=== PATIENT | male | born 1945 | race Caucasian/White ===

== ENCOUNTER 2021-02-06 10:49 | Outpatient (CLI) | payer MEDICARE | END 2021-02-06 23:59 | disposition home or self-care (01) | LOC: US 10:49 | PROVIDERS: ATTEND Internal Medicine | DX: N28.1 Cyst of kidney, acquired (principal); I12.9 Hypertensive chronic kidney disease with stage 1 through stage 4 chronic kidney disease, or unspecified chronic kidney disease; E11.22 Type 2 diabetes mellitus with diabetic chronic kidney disease; N18.9 Chronic kidney disease, unspecified | CPT/HCPCS: 76770-TC ==

== ENCOUNTER → 2021-02-26 | Outpatient (CLI) | payer MEDICARE | END | disposition home or self-care (01) | LOC: MSC 09:26 | PROVIDERS: ATTEND Internal Medicine | DX: E11.22 Type 2 diabetes mellitus with diabetic chronic kidney disease (principal); E11.65 Type 2 diabetes mellitus with hyperglycemia; I12.9 Hypertensive chronic kidney disease with stage 1 through stage 4 chronic kidney disease, or unspecified chronic kidney disease; N18.4 Chronic kidney disease, stage 4 (severe); Z79.4 Long term (current) use of insulin; E11.21 Type 2 diabetes mellitus with diabetic nephropathy; E11.319 Type 2 diabetes mellitus with unspecified diabetic retinopathy without macular edema; R35.0 Frequency of micturition; E66.9 Obesity, unspecified; Z68.42 Body mass index [BMI] 45.0-49.9, adult; Z71.3 Dietary counseling and surveillance; E78.5 Hyperlipidemia, unspecified; Z79.899 Other long term (current) drug therapy ==

== ENCOUNTER 2021-04-04 11:13 | Outpatient (CLI) | payer MEDICARE ==
[2021-04-04] MEDS ORDERED: LORA-259 PO (12:37)
[2021-04-04] MEDS ORDERED: ICOS1CAP PO (12:37)
[2021-04-04] MEDS ORDERED: ESZO3TAB39 PO (12:37)
[2021-04-04] MEDS ORDERED: TOLT4CAP14 PO (12:37)
[2021-04-04] MEDS ORDERED: ALFU10TA10 PO (12:37)
[2021-04-04] MEDS ORDERED: EDARBYCLOR PO (12:39)
[2021-04-04] MEDS ORDERED: REGULAR INSULIN (13:40)
[2021-04-04] MEDS ORDERED: INSU100V7 SQ (13:40)
[2021-04-05] MEDS ORDERED: MECL-225 PO (16:12)
== END 2021-04-04 23:59 | disposition home or self-care (01) ==
LOC: MSC 11:13
PROVIDERS: ATTEND Internal Medicine
DX: R42 Dizziness and giddiness (principal); E11.22 Type 2 diabetes mellitus with diabetic chronic kidney disease; E11.65 Type 2 diabetes mellitus with hyperglycemia; I12.9 Hypertensive chronic kidney disease with stage 1 through stage 4 chronic kidney disease, or unspecified chronic kidney disease; N18.4 Chronic kidney disease, stage 4 (severe); Z79.4 Long term (current) use of insulin; E66.9 Obesity, unspecified; E78.5 Hyperlipidemia, unspecified

== ENCOUNTER 2021-04-04 11:55 | Inpatient (IN) | payer MEDICARE ==
[~2021-04-04] VITALS: Ht 195.6 cm; Wt 111.1 kg
[2021-04-04] MEDS ORDERED: MECLIZINE HCL 12.5 MG TABLET PO ONE (12:30)
[2021-04-04] MEDS ORDERED: IV NS 0.9% 500 ML BAG IV ONE (12:30)
[2021-04-04] MEDS ORDERED: MECLIZINE HCL 25 MG TABLET ONE (12:30)
--- NOTE | 2021-04-04 12:30 | NUR ---
THE PATIENT BIBA FROM PMD OFFICE FOR DIZZINESS. ALERT AND ORIENTED X4. DENIES PAIN. IN ROOM AIR AND DENIES SOB. RESPIRATION REGULAR AND UNLABORED. ATTACHED TO THE MONITOR. WILL CONTINUE TO MONITOR THE PATIENT.
[2021-04-04 12:36] LABS: BASOPHILS % (AUTO) 0.6 % (0.0-2.0); EOSINOPHILS % (AUTO) 0.9 % (0.0-6.0); HEMATOCRIT 41 % (39-51); HEMOGLOBIN 13.4 g/dL (13.5-17.5); LYMPHOCYTES # (AUTO) 2.2 K/uL (0.8-4.8); LYMPHOCYTES % (AUTO) 34.9 % (20.0-44.0); MEAN CORPUSCULAR HGB CONC 33 g/dl (31.0-36.0); MEAN CORPUSCULAR VOLUME 90 fL (80-96); MONOCYTES # (AUTO) 0.5 K/uL (0.1-1.30); MONOCYTES % (AUTO) 8.3 % (2.0-12.0); NEUTROPHILS # (AUTO) 3.4 K/uL (1.8-8.9); NEUTROPHILS % (AUTO) 55.3 % (43.0-81.0); PLATELET COUNT (AUTO) 227 K/uL (150-450); RED BLOOD CELL COUNT(AUTO) 4.48 MIL/uL (4.5-6.0); WHITE BLOOD COUNT (AUTO) 6.2 K/uL (4.3-11.0)
[2021-04-04] MEDS ORDERED: ESZO3TAB39 PO (12:37)
[2021-04-04] MEDS ORDERED: LORA-259 PO (12:37)
[2021-04-04] MEDS ORDERED: ICOS1CAP PO (12:37)
[2021-04-04] MEDS ORDERED: ALFU10TA10 PO (12:37)
[2021-04-04] MEDS ORDERED: TOLT4CAP14 PO (12:37)
[2021-04-04] MEDS ORDERED: EDARBYCLOR PO (12:39)
[2021-04-04 13:16] LABS: ALANINE AMINOTRANSFERASE 23 U/L (12-78); ALBUMIN 3.2 g/dL (3.4-5.0); ALKALINE PHOSPHATASE 74 U/L (46-116); ASPARTATE AMINOTRANSFERASE 16 U/L (15-37); BILIRUBIN,DIRECT 0.1 mg/dL (0.0-0.2); BILIRUBIN,TOTAL 0.5 mg/dL (0.2-1.0); CALCIUM, SERUM 8.3 mg/dL (8.5-10.1); CARBON DIOXIDE 24 mmol/L (21-32); CHLORIDE 100 mmol/L (98-107); CREATININE 2.1 mg/dL (0.6-1.3); POTASSIUM 4.9 mmol/L (3.5-5.1); SODIUM SERUM 134 mmol/L (136-145); UREA NITROGEN, BLOOD 41 mg/dL (7-18)
[2021-04-04 13:20] LABS: GLUCOSE 426 mg/dL (74-106)
[2021-04-04] MEDS ORDERED: INSULIN REGULAR, HUMAN 100 UNIT/ML 10 ML VIAL SQ ONE (13:30)
[2021-04-04] MEDS ORDERED: INSU100V7 SQ (13:40)
[2021-04-04] MEDS ORDERED: REGULAR INSULIN (13:40)
--- NOTE | 2021-04-04 13:43 | NUR ---
[facility] CALLED [employer].
--- NOTE | 2021-04-04 13:43 | NUR ---
[facility] 409. DR MAGAÑA AWARE. INSULIN COVERAGE GIVEN PER ORDER.
--- NOTE | 2021-04-04 13:44 | NUR ---
MOVE SHEET SUBMITTED AND CALLED FOR BED.
--- NOTE | 2021-04-04 14:09 | NUR ---
COVID SWAB DONE AND SENT TO THE LAB
--- NOTE | 2021-04-04 14:53 | NUR ---
Room 309-1
[2021-04-04] MEDS ORDERED: IV NS 0.9% 1,000 ML IV PRN (15:00)
[2021-04-04] MEDS ORDERED: ACETAMINOPHEN 325 MG TABLET PO ONE (15:00)
[2021-04-04] MEDS ORDERED: ACETAMINOPHEN 325 MG TABLET ONE (15:01)
--- NOTE | 2021-04-04 15:28 | NUR ---
REPORT GIVEN TO NURSE ELENA
[2021-04-04 15:48] LABS: THYROID STIMULATING HORMONE 3.563 uIU/mL (0.358-3.74)
--- NOTE | 2021-04-04 15:59 | NUR ---
The patient in stable condition and is transfered to assigned room per policy.
--- NOTE | 2021-04-04 16:15 | NUR ---
EXECUTIVE CHEF ASSISTANTVOCATIONAL SERVICES SPECIALIST NOTES ADMITTED PATIENT IN ROOM 309-2. ALERT AND ORIENTED X4. RECEIVED REPORT FROM ROMAINE, ER NURSE. NO SIGNS OR SYMPTOMS OF DISTRESS NOTED. NO COMPLAINTS OF PAIN AT THIS TIME. BREATHING IS EVEN AND UNLABORED. IV ACCESS IN R HAND #20G IS PATENT AND INTACT. PATIENT ORIENTED TO UNIT AND STAFF. SAFETY MEASURES IN PLACE WITH BED LOCKED IN LOWEST POSITION, SIDE RAILS UP X 2. VALENTINO BERTRAND DRAG CAR RACER WITH PATIENT AT BEDSIDE. CALL LIGHT IS WITHIN REACH. WILL AWAIT ORDERS AND PLAN ON CARE. WILL CONTINUE TO MONITOR THROUGHOUT SHIFT.
[2021-04-04] MEDS ORDERED: ESZOPICLONE 3 MG PO PRN (16:30)
[2021-04-04] MEDS ORDERED: LORAZEPAM 1 MG TABLET PO PRN (16:30)
[2021-04-04] MEDS ORDERED: ONDANSETRON HCL/PF 4 MG/2 ML VIAL IVP PRN (16:30)
[2021-04-04] MEDS ORDERED: *INSULIN REGULAR(HUMULIN R)HUM 100 UNIT/ML VIAL SQ PRN (17:00)
[2021-04-04] MEDS ORDERED: Medication Not On Formulary EA (Icosapent Ethyl (Vascepa) 2 CAP) PO SCH (17:00)
[2021-04-04] MEDS ORDERED: DEXTROSE 50%-WATER 50 ML DISP.SYRIN IV PRN (17:00)
[2021-04-04] MEDS ORDERED: ZOLPIDEM TARTRATE 5 MG TABLET PO PRN (17:30)
[2021-04-04] MEDS ORDERED: MECLIZINE HCL 12.5 MG TABLET PO PRN (17:30)
[2021-04-04] MEDS: BLOOD SUGAR DIAGNOSTIC 1 EACH STRIP VI SCH (18:19)
[2021-04-04] MEDS: INSULIN REGULAR, HUMAN 100 UNIT/ML 3 ML VIAL SQ PRN (18:25)
--- NOTE | 2021-04-04 18:52 | NUR ---
[employer] ARCHITECT NOTES PATIENT BS TAKEN 2 TIMES WITH 1ST RESULT AT 405 AND SECOND BS AT 429. VALENTINO BERTRAND NP MADE AWARE WITH ORDER TO GIVE 10UNITS PER SLIDING SCALE PLUS AN ADDITIONAL 5 UNITS. ORDER CARRIED OUT.
--- NOTE | 2021-04-04 18:53 | NUR ---
EXHIBIT CARPENTER CLOSING NOTES PATIENT IS IN BED AWAKE. ALERT AND ORIENTED X 4. NO SIGNS OR SYMPTOMS OF DISTRESS NOTED. NO COMPLAINTS OF PAIN AT THIS TIME. PATIENT IS TOLERATING ROOM AIR, BREATHING EVEN AND UNLABORED. IV ACCES R HAND #20 IS RUNNING WITH 0.9% NS AT 100MLS/HR. SAFETY MEASURES IN PLACE WITH BED AT LOWEST POSITION LOCKED WITH SIDE RAILS UP X 2. WILL ENDORSE CONTINUITY OF CARE TO NEXT NURSE.
[2021-04-04 20:00] VITALS: BP 155/92
--- NOTE | 2021-04-04 20:00 | NUR ---
MS RN OPENING NOTES Patient is A&Ox4. Denies any pain or discomfort. Not in any distress. Reminded pt. to ask for help when getting up d/t c/o dizziness. R hand #22G intact, patent, saline flushed. Will monitor.
[2021-04-04] MEDS: HEPARIN SODIUM, PORCINE 5000 UNITS/1 ML VIAL SQ SCH (21:53)
[2021-04-04] MEDS ORDERED: INSULIN GLARGINE, 100 UNIT/ML CARTRIDGE SQ SCH (22:00)
--- NOTE | 2021-04-05 | NUR ---
Patient refused midnight vital signs x3. "Saying let me sleep, I am fine."
[2021-04-05] MEDS: BLOOD SUGAR DIAGNOSTIC 1 EACH STRIP VI SCH ×3 (00:40→12:06)
--- NOTE | 2021-04-05 03:02 | NUR ---
Patient checked on at 0245, reports feeling dizzy and shaky. BS checked result 63. OJ x2 given and apple sauce with sugar packet. Will recheck in 30 minutes.
[2021-04-05 04:00] VITALS: BP 137/69
--- NOTE | 2021-04-05 04:00 | NUR ---
At 0358 BS rechecked and it is 239 patient reports feeling much better. MD notified. Awaiting response. Will check again at 0630 before breakfast per [facility] order.
[2021-04-05] MEDS: ACETAMINOPHEN 325 MG TABLET PO PRN ×2 (05:42→16:44)
--- NOTE | 2021-04-05 05:42 | NUR ---
Patient c/o 12/19 headache. PRN tylenol administered as per MD order.
--- NOTE | 2021-04-05 05:56 | NUR ---
Assisted patient to restroom at 0550, patient refused to be hooked back up to NS fluids, saying "being attached to this is like snf" and "i have to get up to pee every hour." Explained risks and benefits.
[2021-04-05 06:00] VITALS: BP_SYST 145; BP_SYST 153; BP_SYST 164; BP_DIAS 77; BP_DIAS 86; BP_DIAS 87
--- NOTE | 2021-04-05 06:00 | NUR ---
MS RN CLOSING NOTES Patient is A&Ox4, still has episodes of dizziness. Had 1 episode of 3/10 headache. Had hypoglycemic reaction at 0200 when BS was checked to be 63 but was given food and juice which was able to reverse the reaction. Gets annoyed easily with staff waking him up and dislikes the light and noise from being close to the nurses station. Offered to close the curtain to prevent light from shining through. Attempts to refuse assistance walking to and from bathroom but nursing is able to talk him into reconsidering as he is a fall risk. At 0550 patient refused to be put back on IVF.
[2021-04-05 06:02] LABS: BASOPHILS % (AUTO) 0.7 % (0.0-2.0); EOSINOPHILS % (AUTO) 1.3 % (0.0-6.0); HEMATOCRIT 38 % (39-51); HEMOGLOBIN 12.6 g/dL (13.5-17.5); LYMPHOCYTES # (AUTO) 2.2 K/uL (0.8-4.8); LYMPHOCYTES % (AUTO) 42.2 % (20.0-44.0); MEAN CORPUSCULAR HGB CONC 33 g/dl (31.0-36.0); MEAN CORPUSCULAR VOLUME 91 fL (80-96); MONOCYTES # (AUTO) 0.5 K/uL (0.1-1.30); MONOCYTES % (AUTO) 10.1 % (2.0-12.0); NEUTROPHILS # (AUTO) 2.4 K/uL (1.8-8.9); NEUTROPHILS % (AUTO) 45.7 % (43.0-81.0); PLATELET COUNT (AUTO) 212 K/uL (150-450); RED BLOOD CELL COUNT(AUTO) 4.16 MIL/uL (4.5-6.0); WHITE BLOOD COUNT (AUTO) 5.2 K/uL (4.3-11.0)
[2021-04-05 06:35] LABS: CALCIUM, SERUM 7.9 mg/dL (8.5-10.1); CARBON DIOXIDE 21 mmol/L (21-32); CHLORIDE 103 mmol/L (98-107); CREATININE 2.1 mg/dL (0.6-1.3); GLUCOSE 264 mg/dL (74-106); MAGNESIUM 1.6 mg/dL (1.8-2.4); SODIUM SERUM 136 mmol/L (136-145); UREA NITROGEN, BLOOD 38 mg/dL (7-18)
[2021-04-05 06:38] LABS: CHOLESTEROL 144 mg/dL (<200); HDL CHOLESTEROL 41 mg/dL (40-60); LDL 70 mg/dL (0-99); TRIGLYCERIDES 230 mg/dL (30-150)
[2021-04-05] MEDS: INSULIN REGULAR, HUMAN 100 UNIT/ML 3 ML VIAL SQ PRN ×2 (07:28→12:07)
[2021-04-05] MEDS ORDERED: PANTOPRAZOLE 40 MG TABLET.DR PO SCH (07:30)
[2021-04-05 08:00] VITALS: BP 148/74
[2021-04-05] MEDS: HEPARIN SODIUM, PORCINE 5000 UNITS/1 ML VIAL SQ SCH (08:21)
[2021-04-05] MEDS ORDERED: TOLTERODINE 2 MG CAP.SR PO SCH (09:00)
[2021-04-05] MEDS ORDERED: Medication Not On Formulary EA (Alfuzosin Hcl 10 MG) PO SCH (09:00)
[2021-04-05] MEDS ORDERED: Medication Not On Formulary EA ([Edarbyclor] 1 TAB) PO SCH (09:00)
[2021-04-05] MEDS ORDERED: Magnesium 1GM/D5W 100ML PREMIX 100 ML IV SCH (10:30)
--- NOTE | 2021-04-05 12:07 | NUR ---
TELE/RN NOTES BLOOD SUGAR 156MG/DL PATIENT REFUSED 2 UNIT REGULAR INSULIN SUBCUTANEOUS EXPLAINED THE RISK AND BENEFITS. WILL CONTINUE TO MONITOR.
[2021-04-05] MEDS ORDERED: MECL-225 PO (16:12)
--- NOTE | 2021-04-05 17:35 | NUR ---
RN NOTES PATIENT IS ALERT AND ORIENTED X3. PATIENT IS ON ROOM AIR SATURATING WELL. PATIENT IN NO APPARENT RESPIRATORY DISTRESS NOTED. NO COMPLAINED OF PAIN NOTED. SEEN AND EXAMINED BY MD WITH ORDERS MADE AND CARRIED OUT. ALL DUE MEDICATIONS WAS GIVEN. DISCHARGE INSTRUCTION WAS GIVEN AND PATIENT VERBALIZED UNDERSTANDING. PATIENT LEFT THE HOSPITAL IN MEDICALLY STABLE CONDITION, DIRECTOR HEALTH BY [employer] VIA PRIVATE CAR.
== END 2021-04-05 17:40 | disposition home or self-care (01) | DRG 149 ==
LOC: ER 12:04 → TELE 15:31
PROVIDERS: ADMIT Nurse Practitioner Family; ATTEND Nurse Practitioner Family
DX: H81.10 Benign paroxysmal vertigo, unspecified ear (principal); E44.1 Mild protein-calorie malnutrition; N18.4 Chronic kidney disease, stage 4 (severe); E87.1 Hypo-osmolality and hyponatremia; E11.22 Type 2 diabetes mellitus with diabetic chronic kidney disease; E11.65 Type 2 diabetes mellitus with hyperglycemia; I12.9 Hypertensive chronic kidney disease with stage 1 through stage 4 chronic kidney disease, or unspecified chronic kidney disease; Z79.4 Long term (current) use of insulin; E78.5 Hyperlipidemia, unspecified; E86.1 Hypovolemia; Z20.822 Contact with and (suspected) exposure to COVID-19; E88.09 Other disorders of plasma-protein metabolism, not elsewhere classified; Z68.29 Body mass index [BMI] 29.0-29.9, adult; E11.21 Type 2 diabetes mellitus with diabetic nephropathy; Z91.19 Patient's noncompliance with other medical treatment and regimen; Z90.411 Acquired partial absence of pancreas
CPT/HCPCS: 36415; 70450-TC; 71045-TC; 80048-TC; 80061-TC; 80076-TC; 82962-TC; 83735-TC; 83880; 84443-TC; 84484-TC; 85025-TC; 85730-TC; 87081-TC; C9803; G0378; J1644; J1815; J3475; J7040; J8597

== ENCOUNTER 2024-10-20 12:59 | Emergency (ER) | payer MEDICARE ==
[~2024-10-20] VITALS: Ht 172.7 cm; Wt 81.2 kg
[~2024-10-20 12:59] MED LIST: ALFU10TA10 PO; EDARBYCLOR PO; ESZO3TAB39 PO; ICOS1CAP PO; INSU100V7 SQ; LORA-259 PO; MECL-182 PO; REGULAR INSULIN; TOLT4CAP14 PO
[2024-10-20 13:03] VITALS: BP 162/105; TEMP 97.9; O2SAT 99
== END 2024-10-20 13:30 | disposition left against medical advice (07) ==
LOC: ER 13:30
DX: R55 Syncope and collapse (principal); Z53.21 Procedure and treatment not carried out due to patient leaving prior to being seen by health care provider